=== PATIENT | female | born 2000 | race Two or more races ===

== ENCOUNTER 2018-10-26 13:40 | Outpatient (CLI) | payer OTHER | END 2018-10-26 13:41 | disposition home or self-care (01) | LOC: BICMRI 13:40 | PROVIDERS: ATTEND Family Medicine | DX: Z53.8 Procedure and treatment not carried out for other reasons (principal) ==

== ENCOUNTER 2018-11-30 10:16 | Day surgery (SDC) | payer OTHER ==
--- NOTE | 2018-11-30 14:26 | MRI ---
MRI BRAIN AND SELLA WITH AND WITHOUT CONTRAST: DATE: 11/30/2018. HISTORY: A 18-year-old female with hypothyroidism. COMPARISON: None. TECHNIQUE: IV injection of 8 mL MultiHance Gadolinium contrast agent. Multiplanar, multisequence MRI of whole brain, plus thin slices through the sella turcica, pre- and p ost-IV injection of the MultiHance. FINDINGS: The ventricles are normal in size in configuration. There is no restricted diffusion. No evidence o f recent intraaxial hemorrhage or abnormal intraaxial enhancement or mass. No mass effect, midline s hift, or extraaxial fluid collection. No Chiari-I malformation. A large number of tiny (on the order of 1-3 mm in size each) of T2 and FLAIR hyperintensities through out the bilateral centrum semiovale and anderson radiata. In older individuals, this would be consiste nt with chronic ischemic white matter changes due to microvascular atherosclerosis (small vessel dise ase). It is unusual for a 18-year-old female to have such a degree of these changes. The lesions ar e not typical for multiple sclerosis, although that is not completely excluded. No moderate-sized or large cortical infarction identified of any age. The pituitary gland is not enlarged. Its volume is probably slightly smaller than typical for a 18-y ear-old female. At the far posterior edge of the sella turcica, there is a tiny, approximately 0.4 x 0.3 x 0.1 cm T2-hyperintense and T1 hypointense lesion, with no definite enhancement. No other lesi on within the pituitary gland. The optic chiasm is normal. There is no suprasellar mass. No abnorm al enhancement or mass in the hypothalamus. IMPRESSION: 1. Tiny lesion at the posterior aspect of the sella turcica favored to be a tiny pituitary cyst rath er than a pituitary microadenoma. 2. Large number of tiny focal signal abnormalities in the bilateral cerebral deep and subcortical wh ite matter. This probably represents chronic ischemic white matter changes due to microvascular athe rosclerosis, much greater than typical for this age group. Recommend clinical correlation (is there a history of hypertension, diabetes mellitus, or end stage renal disease?). POS: CET
[2018-11-30] MEDS ORDERED: Lidocaine 1% PF 5 ML VIAL ONE (14:53)
[2018-11-30] MEDS ORDERED: Dexamethasone 20 MG/5 ML VIAL ONE (14:53)
[2018-11-30] MEDS ORDERED: PROPOFOL 200 MG/20 ML VIAL ONE (14:53)
[2018-11-30] MEDS ORDERED: Ondansetron PF 4 MG/2 ML Vial ONE (14:53)
== END 2018-11-30 15:00 | disposition home or self-care (01) ==
LOC: SDC/OP 10:16
PROVIDERS: ATTEND Internal Medicine Endocrinology, Diabetes & Metabolism
DX: E23.6 Other disorders of pituitary gland (principal); E03.9 Hypothyroidism, unspecified; Z79.84 Long term (current) use of oral hypoglycemic drugs; Z79.899 Other long term (current) drug therapy
CPT/HCPCS: 36416; 70553

== ENCOUNTER 2021-12-28 16:14 | Outpatient (CLI) | payer OTHER | END 2021-12-28 16:15 | disposition home or self-care (01) | LOC: BICRAD 16:14 | PROVIDERS: ATTEND Nurse Practitioner Family | DX: M54.6 Pain in thoracic spine (principal); M54.2 Cervicalgia; R22.2 Localized swelling, mass and lump, trunk; M40.40 Postural lordosis, site unspecified | CPT/HCPCS: 72040; 72072; 72100 ==

== ENCOUNTER 2022-05-30 14:00 | Outpatient (CLI) | payer OTHER | END 2022-05-30 14:01 | disposition home or self-care (01) | LOC: BICRAD 14:00 | PROVIDERS: ATTEND Nurse Practitioner Family | DX: M25.561 Pain in right knee (principal); R29.898 Other symptoms and signs involving the musculoskeletal system ==